=== PATIENT | female | born 1935 | race Caucasian/White ===

== ENCOUNTER → 2023-09-22 13:48 | Outpatient (REF) | payer MEDICARE, OTHER, SELFPAY | LOC: RAD 13:48 | PROVIDERS: ATTENDING PHYSICIAN Internal Medicine; FAMILY PHYSICIAN Nurse Practitioner Adult Health | DX: C73 Malignant neoplasm of thyroid gland (principal) | CPT/HCPCS: 71260; Q9967 ==

== ENCOUNTER → 2023-10-15 10:11 | Outpatient (REF) | payer OTHER, SELFPAY | LOC: PAVMRI 10:11 | PROVIDERS: ATTENDING PHYSICIAN Internal Medicine; FAMILY PHYSICIAN Nurse Practitioner Adult Health | DX: C73 Malignant neoplasm of thyroid gland (principal) | CPT/HCPCS: 70553; A9575 ==

== ENCOUNTER → 2023-11-23 09:00 | Outpatient (REF) | payer OTHER, SELFPAY ==
[2023-11-23] MEDS: THYROGEN 1 MG IM (09:36)
== END ==
LOC: RAD 09:00
PROVIDERS: ATTENDING PHYSICIAN Internal Medicine
DX: C73 Malignant neoplasm of thyroid gland (principal)
CPT/HCPCS: 96372; J3240

== ENCOUNTER → 2023-11-24 09:00 | Outpatient (REF) | payer OTHER, SELFPAY ==
[2023-11-24] MEDS: THYROGEN 1 MG IM (07:41)
--- NOTE | 2023-11-24 08:00 | PTCARENOTE ---
Pt arrived in [facility] at 0710. Pharmacy called to prepare thyrogen injection. Medication delivered at 0735, med scanned and given at 0740.
== END ==
LOC: RAD 09:00
PROVIDERS: ATTENDING PHYSICIAN Internal Medicine
DX: C73 Malignant neoplasm of thyroid gland (principal)
CPT/HCPCS: 96372; J3240

== ENCOUNTER → 2023-11-25 09:00 | Outpatient (REF) | payer OTHER, SELFPAY | LOC: RAD 09:00 | PROVIDERS: ATTENDING PHYSICIAN Internal Medicine | DX: C73 Malignant neoplasm of thyroid gland (principal) | CPT/HCPCS: 78018; A9509 ==

== ENCOUNTER → 2023-12-01 09:00 | Outpatient (REF) | payer OTHER, SELFPAY ==
[2023-12-01] MEDS: THYROGEN 1 MG IM (07:40)
== END ==
LOC: RAD 09:00
PROVIDERS: ATTENDING PHYSICIAN Internal Medicine
DX: C73 Malignant neoplasm of thyroid gland (principal)
CPT/HCPCS: 96372; J3240

== ENCOUNTER → 2023-12-02 09:00 | Outpatient (REF) | payer OTHER, SELFPAY | LOC: RAD 09:00 | PROVIDERS: ATTENDING PHYSICIAN Internal Medicine | DX: C73 Malignant neoplasm of thyroid gland (principal) | CPT/HCPCS: 79005; A9517 ==

== ENCOUNTER → 2023-12-03 13:42 | Outpatient (REF) | payer OTHER, SELFPAY ==
[2023-11-30] MEDS: THYROGEN 1 MG IM (08:00)
== END ==
LOC: RAD 13:42
PROVIDERS: ATTENDING PHYSICIAN Internal Medicine
DX: C73 Malignant neoplasm of thyroid gland (principal)
CPT/HCPCS: 96372; J3240

== ENCOUNTER → 2023-12-09 09:00 | Outpatient (REF) | payer OTHER, SELFPAY | LOC: RAD 09:00 | PROVIDERS: ATTENDING PHYSICIAN Internal Medicine | DX: C73 Malignant neoplasm of thyroid gland (principal) | CPT/HCPCS: 78018 ==

== ENCOUNTER → 2025-01-24 10:56 | Outpatient (REF) | payer OTHER, SELFPAY | LOC: HWRAD 10:56 | PROVIDERS: ATTENDING PHYSICIAN Internal Medicine | DX: C73 Malignant neoplasm of thyroid gland (principal) | CPT/HCPCS: 76536 ==